=== PATIENT | male | born 1955 | race American Indian/Alaskan Native ===

== ENCOUNTER 2020-11-15 07:47 | Observation (INO) | payer MEDICARE ==
[2020-11-10 12:02] LABS: Hematocrit 38.6 % (35.5-45.6); Hemoglobin 13.2 gm/dl (11.8-15.2); Mean Corpuscular HGB Conc 34 % (32-34); Mean Corpuscular Volume 89 fl (84-94); Platelet Count 229 K/mm3 (140-440); Red Blood Count 4.37 M/mm3 (3.65-5.03); Red Cell Distribution Width 12.5 % (13.2-15.2)
[2020-11-10 12:22] LABS: BUN/Creatinine Ratio 16; Blood Urea Nitrogen 16 mg/dL (9-20); Calcium 8.9 mg/dL (8.4-10.2); Hemolysis Index 22
[2020-11-15] MEDS ORDERED: ceFAZolin/Water 2 GM/20 ML 2 GM/20 ML SYRINGE IV NR (08:00)
[2020-11-15] MEDS ORDERED: LACTATED RINGERS 1,000 ML ONE (08:16)
--- NOTE | 2020-11-15 08:25 | Anesthesia Day of Surgery ---
Anesthesia Day of Surgery - Day of Surgery Patient Examined: Yes Patient H&P Reviewed: Yes Patient is NPO: Yes
--- NOTE | 2020-11-15 08:27 | Anesthesia Consultation ---
Anesthesia Consult and Med Hx Date of service: 11/15/20 - Airway Anesthetic Teeth Evaluation: Poor (Missing; only has one tooth) ROM Head & Neck: Adequate Mental/Hyoid Distance: Adequate Mallampati Class: Class II Intubation Access Assessment: Good - Pre-Operative Health Status ASA Pre-Surgery Classification: ASA2 Proposed Anesthetic Plan: General - Pulmonary Hx Smoking: Yes (STOPPED X 1 YR) Hx Respiratory Symptoms: No (+2FS) Hx Sleep Apnea: No (JANA PRE SCREEN HIGH RISK) - Cardiovascular System Hx Hypertension: Yes (PT TOOK SELF OFF MEDS X 6 MONTHS) Hx Heart Attack/AMI: Yes (22 YRS AGO- NO PROBLEMS SINCE. 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
[2020-11-15] MEDS ORDERED: LACTATED RINGERS 1,000 ML IV SCH (08:30)
[2020-11-15] MEDS ORDERED: HYDROmorphone 1 MG/1 ML INJ IV PRN ×2 (09:00)
[2020-11-15] MEDS ORDERED: CELECOXIB 200 MG CAP PO NR (09:00)
[2020-11-15] MEDS ORDERED: ACETAMINOPHEN 325 MG TAB PO SCH (09:00)
[2020-11-15] MEDS ORDERED: ONDANSETRON 4 MG/2 ML INJ IV PRN (09:00)
[2020-11-15] MEDS ORDERED: MAGNESIUM OXIDE 400 MG TAB PO SCH (09:00)
[2020-11-15] MEDS ORDERED: LIDOCAINE (1%) 10 MG/1 ML VIAL 20 ML MDV ONE (11:09)
[2020-11-15] MEDS ORDERED: BUPIVACAINE/PF (0.5%) 5 MG/1 ML 30 ML VIAL INFILTRATI ONE ×2 (11:09→12:28)
[2020-11-15] MEDS ORDERED: LIDOCAINE MPF (2%) 20 MG/1 ML VIAL 5 ML ONE (11:18)
[2020-11-15] MEDS ORDERED: dexAMETHasone 20 MG/5 ML VIAL ONE (11:18)
[2020-11-15] MEDS ORDERED: ONDANSETRON 4 MG/2 ML INJ ONE (11:18)
[2020-11-15] MEDS ORDERED: PHENYLEPHRINE/NS 1,000 MCG/10 ML SYRINGE (OR USE) IV ONE (11:18)
[2020-11-15] MEDS ORDERED: fentaNYL 100 MCG/2 ML INJ ONE (11:18)
[2020-11-15] MEDS ORDERED: ROCURONIUM 50 MG/5 ML INJ IV ONE (11:18)
[2020-11-15] MEDS ORDERED: NEOSTIGMINE 10MG/10 ML INJ MDV ONE (11:19)
[2020-11-15] MEDS ORDERED: propofoL 200 MG/20 ML VIAL IV ONE (11:19)
[2020-11-15] MEDS ORDERED: GLYCOPYRROLATE 0.4 MG/2 ML INJ ONE (11:19)
[2020-11-15] MEDS ORDERED: LIDOCAINE (1%) 10 MG/1 ML VIAL 20 ML MDV INFILTRATI ONE (12:29)
[2020-11-15] MEDS ORDERED: SODIUM CHLORIDE 0.9% IRR 1,500 ML BOTTLE IR ONE (12:29)
[2020-11-15] MEDS ORDERED: WATER FOR IRRIG STERILE 1,500 ML BOTTLE IR ONE (12:30)
[2020-11-15] MEDS ORDERED: HYDROmorphone 1 MG/1 ML INJ ONE (13:46)
--- NOTE | 2020-11-15 13:49 | Short Stay Summary ---
Short Stay Documentation Date of service: 11/15/20 - History Principal diagnosis: right inguinal hernia H&P: obtained from office - Allergies and Medications Current Medications: Allergies No Known Allergies Allergy (Verified 11/09/20 10:35) Home Medications Medication Instructions Recorded Confirmed Last Taken Type Aspirin [Adult Aspirin] 81 mg PO DAILY 11/09/20 11/15/20 11/13/20 08:00 History Active Medications Acetaminophen (Acetaminophen 325 Mg Tab) 650 mg PO ONCE ANGE Stop: 11/15/20 21:00 Last Admin: 11/15/20 08:50 Dose: 650 mg Documented by: Celecoxib (Celecoxib 200 Mg Cap) 200 mg PO PREOP NR Stop: 11/15/20 21:00 Last Admin: 11/15/20 08:50 Dose: 200 mg Documented by: Hydromorphone HCl (Hydromorphone 1 Mg/1 Ml Inj) 0.25 mg IV Q10MIN PRN PRN Reason: Pain, Moderate (4-6) Stop: 11/15/20 21:00 Hydromorphone HCl (Hydromorphone 1 Mg/1 Ml Inj) 0.5 mg IV Q10MIN PRN PRN Reason: Pain , Severe (7-10) Stop: 11/15/20 18:00 Cefazolin Sodium (Ancef/Sterile Water 2 Gm/20 Ml) 2 gm in 20 mls @ 80 mls/hr IV PREOP NR Stop: 11/15/20 21:00 Lactated Ringer's (Lactated Ringers) 1,000 mls @ 100 mls/hr IV DIRECT ANGE Last Admin: 11/15/20 08:40 Dose: 100 mls/hr Documented by: Magnesium Oxide (Magnesium Oxide 400 Mg Tab) 400 mg PO ONCE ANGE Stop: 11/15/20 21:00 Last Admin: 11/15/20 08:50 Dose: 400 mg Documented by: Ondansetron HCl (Ondansetron 4 Mg/2 Ml Inj) 4 mg IV ONCE PRN PRN Reason: Nausea And Vomiting Stop: 11/15/20 21:00 - Brief post op/procedure progress note Date of procedure: 11/15/20 Pre-op diagnosis: right inguinal hernia Post-op diagnosis: same Procedure: robotic assisted right inguinal hernia repair with mesh Anesthesia: GETA, local, other (right ilioinguinal nerve block) Findings: Large indirect hernia with chronically scarred sac Surgeon: WHITNEY XIAO (Romi BIGGS ) Estimated blood loss: minimal Pathology: none Specimen disposition: to lab Condition: stable - Hospital course Hospital course: Pt observed in PACU and discharged to home in stable condition when criteria met - Disposition Condition at discharge: Good Disposition: DC-01 TO HOME OR SELFCARE Short Stay Discharge Plan Activity: other (no heavy lifting greater than 15 lbs) Diet: regular Wound: open to air Additional Instructions: SEE PRINTED DISCHARGE INSTRUCTIONS Follow up with: PRIMARY CARE,MD [Primary Care Provider] - 7 Days WHITNEY XIAO DO [Staff Physician] - 14 Days Prescriptions: Ibuprofen [Motrin 800 MG tab] 800 mg PO Q8HR #30 tablet oxyCODONE /ACETAMINOPHEN [Percocet 5/325] 1 tab PO Q6HR PRN #20 tablet PRN Reason: Pain , Severe (7-10)
--- NOTE | 2020-11-15 13:55 | Operative Report ---
Operative Report Operative Report: Date of procedure: 11/15/20 Pre-op diagnosis: right inguinal hernia Post-op diagnosis: same Procedure: robotic assisted right inguinal hernia repair with mesh Anesthesia: GETA, local, other (right ilioinguinal nerve block) Findings: Large indirect hernia with chronically scarred sac Surgeon: WHITNEY XIAO (Romi BIGGS ) Estimated blood loss: minimal Pathology: none Specimen disposition: to lab Condition: stable Hospital course: Pt observed in PACU and discharged to home in stable condition when criteria met HPI and indication: Patient is a 65-year-old male with a 1 YEAR history of a right inguinal hernia. The hernia is reducible however has become more bothersome and larger over time. It was recommended that the hernia be repaired. I discussed all risk, benefits, alternatives to repair with the patient and questions were answered. I explained that if the hernia was found on the right side at the same time, this would be fixed as well. The patient was agreeable. Consent obtained for robotic assisted left inguinal hernia repair with mesh, possible right, possible open. Procedure in detail: Patient was identified in the preoperative area, take back to operating room placed on operative table in supine position. After anesthesia was induced both arms were tucked and all bony prominences padded appropriately. A Gamboa catheter was sterilely placed by the circulating nurse. The abdomen and left groin was then prepped and draped in usual sterile fashion a timeout performed. Local anesthetic was infiltrated to skin at the intended incision sites. The patient had a small umbilical hernia. A supraumbilical incision was made through which a Veress needle was inserted. Veress needle positioning was confirmed using saline drop test and the abdomen insufflated to 15 mmHg. Once the abdomen was insufflated, the Veress needle was removed and a 5 mm Optiview trocar was placed through this incision, through the umbilical hernia defect. The abdomen is inspected there was no underlying injury to any of the abdominal structures. Patient was placed in Trendelenburg and the pelvis examined. There was a large right inguinal hernia. No hernia on left. At this point, an 8 mm right upper quadrant and left upper quadrant robotic trocars were then placed under direct visualization. The 5 mm supraumbilical trocar was removed and replaced with a 12 mm balloon trocar under direct visualization. A Ray-Cayla was placed into the abdomen. The robot was then docked. A fenestrated bipolar was placed into arm #2 and a monopolar scissor in arm #1. The surgeon was then transferred to the console. First, I created a preperitoneal flap on the right. The peritoneum was scored approximately 5 to 6 cm from the hernia defect. The peritoneum was then incised from the midline to the ASIS. The preperitoneal flap was then developed in an avascular plane. I first defined the medial margin by dissecting to the pubic tubercle. The pubic tubercle was cleared of overlying fatty tissue using blunt dissection. I then created the lateral margin in a similar fashion. Great care was taken to avoid injury to any nerves. I then started to reduce the hernia sac. The hernia sac was grasped and retracted laterally and cremasteric muscles were divided in a very careful fashion. During the dissection, the cord structures were identified and protected. The cord structures and vas deferens were visualized throughout the entire dissection. The sac was very large and redundant, chronically scarred to the fascia. After a majority of the sac was reduced, it was transected using cautery. The peritoneal flap was checked for hemostasis. Any additional cremasteric fibers that were were tenting up the peritoneum were divided. Hemostasis was carefully ensured. The hernia was repaired with a large RIGHT 3D max mesh. The mesh and suture material were introduced into the abdomen by the water quality assistant. The mesh was positioned into the preperitoneal flap in the usual fashion. The medial portion of the mesh was sutured to Roosevelt's ligament using an interrupted 2-0 Vicryl stitch. The lateral aspect of the mesh was sutured to the anterior lateral abdominal wall using a 2-0 Vicryl interrupted stitch. The mesh was seen to lay flat in the pocket with excellent coverage. The peritoneum was then reapproximated using 3-0 running V-Loc stitch. Defects in the peritoneum were closed using running 3-0 vloc stitch. The entirety of the mesh was covered with peritoneum. The robot was then undocked and the surgeon scrubbed back in. The remainder of the case was performed laparoscopically. All sharp materials along with a Ray-Cayla were removed from the abdomen under direct visualization. The 12 mm port was removed and the fascia closed using a interrupted 0 Vicryl stitch with a Yasir Allen device. The abdomen was then slowly desufflated and the mesh was seen to lay flat in the preperitoneal space. The remaining trocars were removed. Skin incisions were once again infiltrated with local anesthetic. RIGHT ilioinguinal nerve block was also performed with 10 cc of local anesthetic. The skin incisions were approximated with 4-0 Monocryl subcuticular stitches and skin glue. At the end of the case all sponge, instrument, sharp counts were correct x2. Patient was awoken from anesthesia and Gamboa catheter removed. Both testicles were palpated and in the scrotum in anatomic position. The patient was taken to PACU in stable condition.
[2020-11-15] MEDS ORDERED: hydrALAZINE 20 MG/1 ML INJ IV NR (14:23)
[2020-11-15] MEDS: oxyCODONE /ACETAMINOPHEN 5-325MG TAB PO PRN (15:05)
--- NOTE | 2020-11-15 16:13 | Post Anesthesia Evaluation ---
- Post Anesthesia Evaluation Patient Participated: Yes Airway Patent: Yes Stable Respiratory Function: Yes Nausea/Vomiting: No Temp > 96.8F: Yes Pain Manageable: Yes Adequeate Hydration: Yes Anesthesia Complications: No Block Receding Appropriately: Not Applicable Patient on Ventilator: No Other Comments: Pt c/o RLE weakness and tingling. Suspect local anesthetic diffused onto femoral nerve. Placed in leg brace and insufficient. PACU will be calling surgeon for further eval.
--- NOTE | 2020-11-15 17:48 | Event Note ---
Date: 11/15/20 Informed by PACU that patient was having numbness of the skin of the right thigh and leg. Patient unable to stand and support his weight due to sensation of numbness. Motor function intact. No symptoms in any other extremity. Patient otherwise comfortable without complaints. Patient had right ilioinguinal nerve block at the end of the surgery. The numbness is likely secondary to the local anesthetic as it is localized to right leg only and affecting only skin sensation. Patient observed for 4 hours with gradual improvement in symptoms, however not able to fully support himself in ambulation. Will admit for observation and reevaluate in am.
[2020-11-15] MEDS: IBUPROFEN 800 MG TAB PO SCH (23:58)
[2020-11-16] MEDS: oxyCODONE /ACETAMINOPHEN 5-325MG TAB PO PRN (00:17)
[2020-11-16] MEDS: IBUPROFEN 800 MG TAB PO SCH ×3 (05:36→10:40)
[2020-11-16 07:24] VITALS: BP 152/72
--- NOTE | 2020-11-16 09:21 | Discharge Summary ---
Providers - Providers Date of Admission: 11/15/20 18:04 Date of discharge: 11/16/20 Attending physician: WHITNEY XIAO DO Primary care physician: [employer] OFFICER Hospitalization Reason for admission: post op hernia repair Condition: Good Procedures: robotic assisted right inguinal hernia repair with mesh Hospital course: Patient observed in PACU post op and c/o parasthesia of right thigh and leg, unable to support self to ambulate. Patient improved slowly but not enough to ambulate on his own. Therefore, he was admitted for observation and allow local anesthetic from ilioinguinal nerve block to subside. Patient is stable today. Ambulating on his own. No complaints. Disposition: DC- TO HOME OR SELFCARE Time spent for discharge: 20 mins Core Measure Documentation - Palliative Care Palliative Care/ Comfort Measures: Not Applicable - Core Measures Any of the following diagnoses?: none Exam - Physical Exam Narrative exam: Gen: AAOx3. NAD CV: S1, S2+ Resp: even and unlabored Abd: soft, NT, ND. Incisions c/d/i Ext: no c/c/e. Full sensory and motor intact - Constitutional Vitals: Temp Pulse Resp BP Pulse Ox 97.9 F 67 18 152/72 99 11/16/20 07:18 11/16/20 07:18 11/16/20 07:18 11/16/20 07:18 11/16/20 07:18 Plan Activity: other (no heavy lifting) Diet: regular Wound: open to air Follow up with: WHITNEY XIAO DO [Staff Physician] - 14 Days PRIMARY CARE, [Primary Care Provider] - 7 Days Forms: Outpatient Surgery DC Inst. Prescriptions: Ibuprofen [Motrin 800 MG tab] 800 mg PO Q8HR #30 tablet oxyCODONE /ACETAMINOPHEN [Percocet 5/325] 1 tab PO Q6HR PRN #20 tablet PRN Reason: Pain , Severe (7-10)
== END 2020-11-16 13:05 | disposition home or self-care (01) ==
LOC: OR 07:47 → 3B-SURG 18:04
PROVIDERS: ADMIT Surgery; ATTEND Surgery
DX: K40.90 Unilateral inguinal hernia, without obstruction or gangrene, not specified as recurrent (principal); Z20.828 Contact with and (suspected) exposure to other viral communicable diseases; I10 Essential (primary) hypertension; Z79.82 Long term (current) use of aspirin
CPT/HCPCS: 36415; 49650; 80048; 85027; 96374; C1781; G0378; J0360; J0690; J1100; J1170; J2370; J2405; J2704; J2710; J3010; J7120; U0003; 96361